=== PATIENT | male | born 1950 | race Hispanic/Latino ===

== ENCOUNTER → 2017-05-30 | Outpatient (CLI) | payer BC | END | disposition home or self-care (01) | LOC: SHCH 08:25 | PROVIDERS: ATTEND Internal Medicine Cardiovascular Disease | DX: I25.10 Atherosclerotic heart disease of native coronary artery without angina pectoris (principal); I10 Essential (primary) hypertension | CPT/HCPCS: 93306 ==

== ENCOUNTER → 2017-06-18 | Outpatient (CLI) | payer BC | END | disposition home or self-care (01) | LOC: SHCH 08:14 | PROVIDERS: ATTEND Internal Medicine Cardiovascular Disease | DX: I65.23 Occlusion and stenosis of bilateral carotid arteries (principal) | CPT/HCPCS: 93880 ==

== ENCOUNTER → 2017-07-01 | Outpatient (CLI) | payer BC ==
[~2017-07-01] VITALS: Ht 162.6 cm; Wt 65.8 kg
[~2017-07-01] MED LIST: REGADENOSON 0.4 MG/5 ML PF SYG IVP SCH
== END | disposition home or self-care (01) ==
LOC: SHCH 06-30 09:18
PROVIDERS: ATTEND Internal Medicine Cardiovascular Disease
DX: I25.10 Atherosclerotic heart disease of native coronary artery without angina pectoris (principal)
CPT/HCPCS: 78452; 93017; 96374; A9500 ×2; J2785

== ENCOUNTER 2018-04-17 17:22 | Emergency (ER) | payer BC ==
[~2018-04-17 17:22] MED LIST changes: +ASPI-555 PO; +ATOR20TA65 PO; +LISI2.5T2 PO; +METO-408 PO; -REGADENOSON 0.4 MG/5 ML PF SYG IVP SCH
== END 2018-04-17 18:36 | disposition home or self-care (01) ==
LOC: EDH 17:22
DX: I10 Essential (primary) hypertension (principal); E78.5 Hyperlipidemia, unspecified
CPT/HCPCS: 99281

== ENCOUNTER 2018-04-21 05:55 | Observation (INO) | payer BC ==
[2018-04-17 14:41] LABS: BASOPHILS % (AUTO) 0.6 % (0.0-5.0); EOSINOPHILS % (AUTO) 1.4 % (0.0-8.0); MEAN CORPUSCULAR HEMOGLOBIN 30.4 pg (27.0-33.0); MEAN CORPUSCULAR HGB CONC 33.6 g/dL (32.0-36.0); MEAN CORPUSCULAR VOLUME 90.4 fL (79-99); MONOCYTES % (AUTO) 8.7 % (3.0-13.0); NEUTROPHILS % (AUTO) 73.3 % (40.0-77.0); PLATELET COUNT (AUTO) 232 K/uL (130-400); RED BLOOD CELL COUNT(AUTO) 4.98 MIL/uL (4.50-6.20); RED CELL DISTRIBUTION WIDTH 13.5 % (11.0-15.5); WHITE BLOOD COUNT (AUTO) 11.5 K/uL (4.8-10.8)
[2018-04-17 14:47] VITALS: BP 192/100
[2018-04-17 14:50] LABS: CREATININE 0.8 mg/dL (0.5-1.5); POTASSIUM 4.5 mmol/L (3.5-5.1)
[2018-04-17 14:52] LABS: INR 0.96 (0.85-1.15); PARTIAL THROMBOPLASTIN TIME 29.6 SEC (26.3-35.5); PROTHROMBIN TIME 10.1 SEC (9.6-11.6)
[2018-04-17 14:58] LABS: APPEARANCE,URINE Clear (CLEAR); BILIRUBIN,URINE Negative (NEGATIVE); COLOR,URINE Yellow (YELLOW); GLUCOSE, URINE (UA) Negative (NEGATIVE); KETONES,URINE Negative (NEGATIVE); LEUKOCYTE ESTERASE ,URINE Negative (NEGATIVE); NITRATE,URINE Negative (NEGATIVE); OCCULT BLOOD,URINE Negative (NEGATIVE); PROTEIN,URINE Negative (NEGATIVE)
--- NOTE | 2018-04-17 15:30 | NUR ---
NOTE PT WITH ELEVATED B/P. PATIENT STATES HE IS VERY NERVOUS AND ALSO STATED THAT HIS BLOOD PRESSURES HAVE BEEN RUNNING HIGH AT HOME WELL. NOTIFIED ROBIN RALPH, ORDERS FOR PATIENT TO INCREASE HIS LISINOPRIL 10MG DAILY. PT STATED HE HAD TAKEN HIS DAILY DOSE OF 2.5MG ALREADY. INSTRUCTED HIM TO TAKE AN ADDITIONAL 3 MORE OF LISINOPRIL 2.5MG NOW AND WILL RECHECK HIS BLOOD PRESSURE IN ONE HOUR.
--- NOTE | 2018-04-17 16:30 | NUR ---
NOTE PATIENTS BLOOD PRESSURE WAS RECHECKED AND CONTINUES TO BE ELEVATED , SYSTOLIC OVER 200 DIASTOLIC 100'S. PATIENT HAS NOT BEEN SYMPTOMATIC. ORDERS TO GIVEN CLONIDINE 0.1MG NOW AND RECHECK IN 25 MINUTES, IF IT CONTINUES ELEVATED, SEND PATIENT TO ER.
--- NOTE | 2018-04-17 17:23 | NUR ---
NOTE PTS BLOOD PRESSURE CONTINUED TO BE ELEVATED 213/103, WALKED PATIENT TO ER.
--- NOTE | 2018-04-20 12:49 | NUR ---
ABNORMAL LABS RAMO MCDERMOTT NOTIFIED OF PT'S WBC 11.5. NO FURTHER ORDERS GIVEN.
[2018-04-21] VITALS (18 sets, daily range): BP systolic 87–202; BP diastolic 43–97
[~2018-04-21] VITALS: Ht 157.5 cm; Wt 66.3 kg
[~2018-04-21 05:55] MED LIST changes: +CLONIDINE HCL 0.1 MG TABLET ONE; +SODIUM CHLORIDE 0.9% 500ML 500 ML IV SCH
--- NOTE | 2018-04-21 06:49 | NUR ---
BOTH PATIENT AND RECEIVED TEACHING ON IMPORTANCE OF BED REST POST PROCEDURE AND THE RISKS OF BLEEDING. BOTH VERBALIZED UNDERSTANDING AND AGREED TO BE COMPLIANT.
[2018-04-21] MEDS ORDERED: SODIUM CHLORIDE 0.9% 1000ML 1,000 ML IV ONE (06:59)
--- NOTE | 2018-04-21 07:52 | NUR ---
RESTING COMFORTABLY,WITH SPOUSE AT BEDSIDE,NO COMPLAINTS,CALL FERG[place]ON IN REACH
[2018-04-21] MEDS ORDERED: LIDOCAINE HCL-MPF 2% 5ML VIAL ONE (09:17)
[2018-04-21] MEDS ORDERED: NITROGLYCERIN 5 MG/ML 10 ML VIAL IV ONE (09:17)
[2018-04-21] MEDS ORDERED: IOHEXOL 350 MG/ML 100ML INFUS..BTL IV ONE (09:17)
[2018-04-21] MEDS ORDERED: IOHEXOL-350 50ML VIAL IV ONE (09:17)
[2018-04-21] MEDS ORDERED: SODIUM BICARB 50MEQ 50ML VIAL ONE (09:17)
[2018-04-21] MEDS ORDERED: MIDAZOLAM HCL 1 MG/ML 2ML VIAL ONE ×2 (09:30→11:21)
[2018-04-21] MEDS ORDERED: MEPERIDINE-PF 25 MG/ML SYG ONE ×2 (09:30→11:20)
[2018-04-21] MEDS ORDERED: IOHEXOL-350 75 ML VIAL IV ONE ×2 (09:48→10:51)
[2018-04-21] MEDS ORDERED: HEPARIN SODIUM 1000UNIT/ML 10ML VIAL ONE (10:20)
[2018-04-21] MEDS ORDERED: HYDRALAZINE HCL 20 MG/ML VIAL ONE (11:31)
[2018-04-21] MEDS ORDERED: CLOPIDOGREL BISULFATE 300 MG TAB ONE (11:42)
[2018-04-21] MEDS ORDERED: NITROGLYCERIN 50 MG/D5% WATER 1 BOT IV PRN (11:45)
[2018-04-21] MEDS ORDERED: CLOPIDOGREL BISULFATE 300 MG TAB PO SCH (11:45)
[2018-04-21] MEDS ORDERED: SODIUM CHLORIDE 0.9% 1000ML 1,000 ML IV SCH (11:45)
[2018-04-21] MEDS ORDERED: TEMAZEPAM 30 MG CAP PO PRN (11:45)
[2018-04-21] MEDS ORDERED: ACETAMINOPHEN-CODEINE 300/30MG TAB PO PRN ×2 (11:45)
[2018-04-21] MEDS ORDERED: ONDANSETRON HCL 4 MG/2 ML VIAL IVP PRN (11:45)
[2018-04-21] MEDS ORDERED: HYDRALAZINE HCL 20 MG/ML VIAL IV PRN (11:45)
--- NOTE | 2018-04-21 19:50 | NUR ---
ASSESSMENT NOTE AAOX3 SITTING UP IN BED BREATHING REGULAR AND UNLABORED ON ROOM AIR. SPOUSE AT THE BEDSIDE. ASSESSMENT COMPLETED. RIGHT GROIN SOFT AND NON-TENDER. PLAN OF CARE DISCUSSED WITH PATIENT. ANSWERED QUESTIONS. REINFORCED SAFETY INSTRUCTION. NO ACUTE SIGNS OR SYMPTOMS OF DISTRESS NOTED. CALL LIGHT IN REACH.
[2018-04-22 03:32] VITALS: BP 145/76
[2018-04-22 03:36] LABS: HEMATOCRIT 40.1 % (42-54); MEAN CORPUSCULAR HEMOGLOBIN 29.9 pg (27.0-33.0); MEAN CORPUSCULAR HGB CONC 33.2 g/dL (32.0-36.0); MEAN CORPUSCULAR VOLUME 90.3 fL (79-99); PLATELET COUNT (AUTO) 216 K/uL (130-400); RED BLOOD CELL COUNT(AUTO) 4.44 MIL/uL (4.50-6.20); RED CELL DISTRIBUTION WIDTH 13.5 % (11.0-15.5); WHITE BLOOD COUNT (AUTO) 14.9 K/uL (4.8-10.8)
[2018-04-22 03:57] LABS: CREATININE 0.8 mg/dL (0.5-1.5); POTASSIUM 3.9 mmol/L (3.5-5.1)
[2018-04-22 07:30] VITALS: BP 141/86
[2018-04-22] MEDS ORDERED: ASPIRIN 81MG TAB.CHEW PO SCH (09:00)
[2018-04-22] MEDS ORDERED: CLOPIDOGREL BISULFATE 75 MG TAB PO SCH (09:00)
[2018-04-22] MEDS ORDERED: PANTOPRAZOLE SODIUM 40 MG TABLET.DR PO SCH (09:00)
--- NOTE | 2018-04-22 09:17 | NUR ---
DR. BOLDEN IN TO SEE PT. PLAN OF CARE DISCUSSED. NEW ORDERS RECEIVED AND NOTED.
[2018-04-22] MEDS ORDERED: CLOP75TA14 PO (09:38)
--- NOTE | 2018-04-22 10:12 | NUR ---
DISCHARGE INSTRUCTIONS GIVEN TO PT AND . ALL QUESTIONS ANSWERED. MEDICATIONS REVIEWED, PRESCRIPTIONS AND STENT CARD GIVEN TO PT. PIV AND TELEMONITOR DISCONTINUED. ALL BELONGINGS RETURN TO PT.
== END 2018-04-22 10:48 | disposition home or self-care (01) ==
LOC: DAH 05:55 → DAHIP 05:56 → DAH 05:56 → 2BH 12:08
PROVIDERS: ADMIT Internal Medicine; ATTEND Internal Medicine
DX: I25.118 Atherosclerotic heart disease of native coronary artery with other forms of angina pectoris (principal); I10 Essential (primary) hypertension; E78.5 Hyperlipidemia, unspecified; I25.2 Old myocardial infarction; F15.90 Other stimulant use, unspecified, uncomplicated; Z79.82 Long term (current) use of aspirin; Z79.899 Other long term (current) drug therapy; Z72.89 Other problems related to lifestyle; Z83.3 Family history of diabetes mellitus; Z82.49 Family history of ischemic heart disease and other diseases of the circulatory system; Z82.3 Family history of stroke; Z95.1 Presence of aortocoronary bypass graft; Z79.01 Long term (current) use of anticoagulants
CPT/HCPCS: 36415 ×2; 71045; 80048 ×2; 80061; 81003; 85025; 85027; 85347; 85610; 85730; 93005; 93459; 99156; 99157; A4606; C1760; C1769 ×5; C1874; C1887 ×3; C1894; C9604; G0378 ×29; J0360; J1644 ×3; J2175; J2250; J3490 ×3; J7030; Q9965; Q9967 ×4; C9600

== ENCOUNTER → 2019-09-28 | Outpatient (CLI) | payer BC | END | disposition home or self-care (01) | DX: I25.10 Atherosclerotic heart disease of native coronary artery without angina pectoris (principal); I10 Essential (primary) hypertension ==

== ENCOUNTER → 2020-11-02 | Outpatient (CLI) | payer BC ==
[~2020-11-02] MED LIST changes: -ASPI-555 PO; +ASPI-556 PO; -CLONIDINE HCL 0.1 MG TABLET ONE; +CLOP75TA14 PO; +LISI2.5T13 PO; -LISI2.5T2 PO; -SODIUM CHLORIDE 0.9% 500ML 500 ML IV SCH
== END | disposition home or self-care (01) ==
LOC: SHCH 09:15
PROVIDERS: ATTEND Internal Medicine Cardiovascular Disease
DX: I08.3 Combined rheumatic disorders of mitral, aortic and tricuspid valves (principal); R01.1 Cardiac murmur, unspecified
CPT/HCPCS: 93306; 93356

== ENCOUNTER → 2022-04-16 | Outpatient (CLI) | payer BC ==
[~2022-04-16] MED LIST changes: +CLOP-31 PO; -CLOP75TA14 PO
== END | disposition home or self-care (01) ==
LOC: SHCH 15:11
PROVIDERS: ATTEND Internal Medicine Cardiovascular Disease
DX: I65.23 Occlusion and stenosis of bilateral carotid arteries (principal); I25.10 Atherosclerotic heart disease of native coronary artery without angina pectoris
CPT/HCPCS: 93880

== ENCOUNTER → 2023-01-27 | Outpatient (CLI) | payer BC ==
[2023-01-27 12:15] LABS: POTASSIUM 4.4 mmol/L (3.5-5.1)
== END | disposition home or self-care (01) ==
LOC: LAB 08:45
PROVIDERS: ATTEND Internal Medicine Cardiovascular Disease
DX: I10 Essential (primary) hypertension (principal)
CPT/HCPCS: 36415; 80048

== ENCOUNTER → 2023-02-04 | Outpatient (CLI) | payer BC, MEDICARE ==
[~2023-02-04] MED LIST changes: +IOHEXOL 350 MG/ML 100ML INFUS..BTL IV ONE
== END | disposition home or self-care (01) ==
LOC: RAH 07:57
PROVIDERS: ATTEND Internal Medicine Cardiovascular Disease
DX: I25.10 Atherosclerotic heart disease of native coronary artery without angina pectoris (principal); R94.31 Abnormal electrocardiogram [ECG] [EKG]; R18.8 Other ascites; Z95.1 Presence of aortocoronary bypass graft; Z95.5 Presence of coronary angioplasty implant and graft
CPT/HCPCS: 75574; Q9967

== ENCOUNTER → 2024-02-27 | Outpatient (CLI) | payer BC ==
[~2024-02-27] MED LIST changes: -IOHEXOL 350 MG/ML 100ML INFUS..BTL IV ONE
== END | disposition home or self-care (01) ==
LOC: SHCH 08:52
PROVIDERS: ATTEND Internal Medicine Cardiovascular Disease
DX: I25.10 Atherosclerotic heart disease of native coronary artery without angina pectoris (principal)
CPT/HCPCS: 93306

== ENCOUNTER → 2024-05-17 | Outpatient (CLI) | payer BC ==
--- NOTE | 2024-05-17 16:31 | HMCIMG ---
LUMBAR SPINE 2-3VWS HISTORY: Low back pain COMPARISON: None FINDINGS: 3 images of lumbar spine were obtained. Disc space narrowing is seen at the L5-S1 level. There is straightening of normal lordotic curvature which may be related to muscle spasm or positioning. No loss of vertebral height is seen. No fracture or dislocation is seen. Degenerative changes are seen. IMPRESSION: 1. No fracture is seen.
== END | disposition home or self-care (01) ==
LOC: RAH 14:57
PROVIDERS: ATTEND Internal Medicine
DX: M47.816 Spondylosis without myelopathy or radiculopathy, lumbar region (principal); M48.07 Spinal stenosis, lumbosacral region; M54.50 Low back pain, unspecified
CPT/HCPCS: 72100

== ENCOUNTER → 2024-06-07 | Outpatient (CLI) | payer BC ==
--- NOTE | 2024-06-07 12:27 | HMCIMG ---
MRI OF THE LUMBAR SPINE WITHOUT GADOLINIUM Clinical Information: Comparison: Findings: Technique: Sagittal T1 and T2 FSE, Sagittal STIR and Sagittal proton density images were completed through the lumbosacral spine. Axial T1, T2 and proton density images were also acquired. FINDINGS: Examination shows adequate alignment of the vertebral bodies of the lumbar spine. No fractures or dislocations are identified.The bone marrow signal is normal for age. The spinal canal contents are preserved. The conus terminates at a normal level at T12 to L2. The paraspinal muscles and other tissues show no significant abnormalities. Evaluation of the lumbar spine by level: T12-L1: There is no spinal canal stenosis. No disc protrusion or extrusion is noted. There is no neural foraminal stenosis, impingement, or narrowing. L1-L2: There is no spinal canal stenosis. No disc protrusion or extrusion is noted. There is no neural foraminal stenosis, impingement, or narrowing. L2-L3: There is no spinal canal stenosis. No disc protrusion or extrusion is noted. There is no neural foraminal stenosis, impingement, or narrowing. L3-L4: There is a broad-based central zone disc protrusion causing neural foramina narrowing bilaterally at this level. Bilateral nerve root impingement. Spinal canal stenosis. L4-L5: There is a broad-based central zone disc protrusion causing neural foramina narrowing bilaterally at this level. Bilateral nerve root impingement. Spinal canal stenosis. L5-S1: There is a broad-based central zone disc protrusion causing neural foramina narrowing bilaterally at this level. Bilateral nerve root impingement. Spinal canal stenosis. 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
== END | disposition home or self-care (01) ==
LOC: RAH 11:07
PROVIDERS: ATTEND Internal Medicine
DX: M48.061 Spinal stenosis, lumbar region without neurogenic claudication (principal); M51.26 Other intervertebral disc displacement, lumbar region; M51.27 Other intervertebral disc displacement, lumbosacral region; M25.80 Other specified joint disorders, unspecified joint; M54.30 Sciatica, unspecified side; R53.1 Weakness
CPT/HCPCS: 72148